=== PATIENT | male | born 1935 | race Caucasian/White ===

== ENCOUNTER 2021-05-17 00:15 | Emergency (ER) | payer OTHER ==
[~2021-05-17] VITALS: Ht 172.7 cm; Wt 113.4 kg
[~2021-05-17 00:15] MED LIST: ACAR50 PO; GLIP10ER PO; HYDCHL12.5 PO; INSULIN; LIPOZENE; LISI20 PO
[2021-05-17 00:28] LABS: BASOPHILS ABSOLUTE AUTO 0.04 K/mm3 (0.00-0.23); BASOPHILS PERCENT AUTO 0 % (0-2); EOSINOPHILS ABSOLUTE AUTO 0.23 K/mm3 (0.00-0.68); EOSINOPHILS PERCENT AUTO 2 % (0-6); Hematocrit 35.7 % (37.0-53.0); Hemoglobin 11.5 g/dL (13.5-17.5); IMMATURE GRAN ABSOLUTE AUTO 0.06 K/mm3 (0.00-0.10); IMMATURE GRAN PERCENT AUTO 1 % (0-1); LYMPHOCYTES ABSOLUTE AUTO 1.82 K/mm3 (0.84-5.20); LYMPHOCYTES PERCENT AUTO 14 % (21-46); MONOCYTES ABSOLUTE AUTO 1.22 K/mm3 (0.16-1.47); MONOCYTES PERCENT AUTO 10 % (4-13); Mean Corpuscular HGB 29.7 pg (26.0-34.0); Mean Corpuscular HGB Conc 32.2 g/dL (31.5-36.5); Mean Corpuscular Volume 92 fL (80-100); Mean Platelet Volume 10.3 fL (9.1-12.4); NEUTROPHILS ABSOLUTE AUTO 9.52 K/mm3 (1.96-9.15); NEUTROPHILS PERCENT AUTO 74 % (41-73); Platelet Count 194 K/mm3 (150-400); RDW Coefficient Variation 13.2 % (11.7-14.2); RDW Standard Deviation 44.7 fL (35.1-46.3); Red Blood Cell Count 3.87 M/mm3 (4.30-5.90); White Blood Cell Count 12.89 K/mm3 (4.00-11.30)
[2021-05-17 01:00] LABS: Alanine Aminotransfer (ALT/SGP 23 U/L (12-78); Albumin, Blood 3.3 g/dL (3.4-5.0); Albumin/Globulin Ratio 0.9 (0.8-1.8); Alk Phos 86 U/L (50-136); Anion Gap 8 mmol/L (6-16); Aspartate Aminotrans (AST/SGOT 17 U/L (12-37); Bilirubin, Total 0.4 mg/dL (0.1-1.0); Blood Urea Nitrogen 25 mg/dL (8-24); Bun/Creatinine Ratio 23.6 (12.0-20.0); CO2, Blood 28 mmol/L (21-32); Calcium, Blood 9.3 mg/dL (8.5-10.1); Chloride, Blood 103 mmol/L (98-108); Creatinine, Blood 1.06 mg/dL (0.60-1.20); Globulin, Blood 3.6 g/dL (2.2-4.0); Glomerular Filtration Rate >60 (60-); Glucose, Blood 172 mg/dL (70-99); Potassium, Blood 4.1 mmol/L (3.5-5.5); Sodium, Blood 139 mmol/L (136-145); Total Protein, Blood 6.9 g/dL (6.4-8.2); Troponin I <0.015 ng/mL (0.000-0.040)
[2021-05-17 02:44] LABS: International Normalized Ratio 1.49; Prothrombin Time Results 15.2 Sec (9.7-11.5)
[2021-05-17 02:45] LABS: Influenza A, PCR NEGATIVE (NEGATIVE); Influenza B, PCR NEGATIVE (NEGATIVE); Resp Syncytial Virus, PCR NEGATIVE (NEGATIVE); SARS-Cov-2 (COVID-19) PCR, MMC NEGATIVE (NEGATIVE)
[2021-05-17] MEDS ORDERED: GABA300 PO (06:20)
[2021-05-17] MEDS ORDERED: FURO20 PO (06:20)
[2021-05-17] MEDS ORDERED: LANTUS SOL100 UNIT/1 SC (06:21)
[2021-05-17] MEDS ORDERED: INSULIN AS100 UNIT/6 SC (06:21)
[2021-05-17] MEDS ORDERED: METF500 PO (06:22)
[2021-05-17] MEDS ORDERED: METO25ER PO (06:22)
[2021-05-17] MEDS ORDERED: Isosorbide Mono30 MG PO (06:22)
[2021-05-17] MEDS ORDERED: OMEP20ER PO (06:22)
[2021-05-17] MEDS ORDERED: ZOCOR20 MG PO (06:23)
[2021-05-17] MEDS ORDERED: Flomax0.4 MG PO (06:23)
[2021-05-17] MEDS ORDERED: POTA10T PO (06:23)
[2021-05-17] MEDS ORDERED: XARELTO20 MG PO (06:23)
[2021-05-17] MEDS ORDERED: Diovan320 MG PO (06:24)
== END 2021-05-17 03:00 | disposition short-term general hospital (02) ==
LOC: ER 00:15
PROVIDERS: Student in an Organized Health Care Education/Training Program
DX: I62.00 Nontraumatic subdural hemorrhage, unspecified (principal); J96.00 Acute respiratory failure, unspecified whether with hypoxia or hypercapnia; I48.91 Unspecified atrial fibrillation; E11.9 Type 2 diabetes mellitus without complications; I10 Essential (primary) hypertension; I25.2 Old myocardial infarction; Z20.822 Contact with and (suspected) exposure to COVID-19; Z79.899 Other long term (current) drug therapy; Z79.84 Long term (current) use of oral hypoglycemic drugs
CPT/HCPCS: 0241U; 31500; 51702; 70450; 71045; 80053; 84484; 85025; 85610; 85730; 93005; 93010; 94002; 96365; 96367; 96368; 96375; 99291-25; J1953; J2704; J3010; J7050; J7168